=== PATIENT | male | born 1965 ===

== ENCOUNTER 2017-10-22 14:41 | Emergency (ER) | payer MEDICAID ==
[2017-10-22 14:42] VITALS: BMI 31.6
[2017-10-22 15:21] VITALS: BP 136/91; PULSE 86; RESP 16; TEMP 98; O2SAT 95
[2017-10-22] MEDS ORDERED: Morphine 4 mg/ml ISec IVP STA (16:21)
[2017-10-22] MEDS ORDERED: Sodium Chloride 0.9% 1,000 ML IV STA (16:21)
[2017-10-22] MEDS ORDERED: Albuterol-Ipratrop 3 mg / 0.5 (3 ml) UD IH STA (16:22)
--- NOTE | 2017-10-22 16:27 | ED PDOC ---
Arrival/HPI - General Chief Complaint: Bite Time Seen by Provider: 10/22/17 16:20 Historian: Patient - History of Present Illness Narrative History of Present Illness (Text): 10/22/17 16:23 This 52 yo male with a pmh Asthma, presents to this ED c/o nausea, vomiting, diarrhea, LLQ abdominal pain, and wheezing x 2 days. Patient stated he was visiting a friend and [place] x 3 days ago. He also noted he was bit by his friend's pet, which it is a skunk. Patient stated friend's pet is indoor at all time. Pet is UTD with any required shot. Patient denies sob, cp, rectal bleeding, fever, or urinary symptoms. Patient stated his last tetanus shot was 3 years ago. Time/Duration: Other (see hpi) Context: Home Past Medical History - Provider Review Nursing Documentation Reviewed: Yes - Infectious Disease Hx of Infectious Diseases: None - Tetanus Immunization Tetanus Immunization: Unknown - Cardiac Hx Cardiac Disorders: No - Pulmonary Hx Respiratory Disorders: Yes Hx Asthma: Yes - Neurological Hx Neurological Disorder: No - HEENT Hx HEENT Disorder: No - Renal Hx Renal Disorder: No - Endocrine/Metabolic Hx Endocrine Disorders: Yes Hx Diabetes Mellitus Type 2: Yes - Hematological/Oncological Hx Blood Disorders: No - Integumentary Hx Dermatological Disorder: No - Musculoskeletal/Rheumatological Hx Musculoskeletal Disorders: No - Gastrointestinal Hx Gastrointestinal Disorders: No - Genitourinary/Gynecological Hx Genitourinary Disorders: No - Psychiatric Hx Psychophysiologic Disorder: No Hx Emotional Abuse: No Hx Physical Abuse: No Hx Substance Use: Yes - Surgical History Other/Comment: CYST REMOVED FROM NECK, COLONOSCOPY - Anesthesia Hx Anesthesia Reactions: No Hx Malignant Hyperthermia: No - Suicidal Assessment Feels Threatened In Home Enviroment: No Family/Social History - Physician Review Nursing Documentation Reviewed: Yes Family/Social History: Other (noncontributory) Smoking Status: Heavy Smoker > 10 Cigarettes Daily Hx Alcohol Use: No Hx Substance Use: Yes Substance used: marijuana Hx Substance Use Treatment: No Allergies/Home Meds Allergies/Adverse Reactions: Allergies varenicline tartrate [From Chantix] Adverse Reaction (Verified 10/22/17 15:16) HEADACHE Home Medications: Home Meds Medication Instructions Recorded Confirmed Mometasone/Formoterol [Dulera] 1 aure IH BID PRN 04/20/16 04/20/18 Review of Systems - Review of Systems Constitutional: Normal. absent: Fatigue, Weight Change, Fevers Eyes: Normal ENT: Normal Respiratory: Wheezing. absent: SOB, Cough, Sputum Cardiovascular: Normal. absent: Chest Pain, Palpitations Gastrointestinal: Abdominal Pain, Diarrhea, Nausea, Vomiting Genitourinary Male: Normal. absent: Dysuria, Frequency, Hematuria Musculoskeletal: Normal. absent: Back Pain Skin: Other (animal bite right 3rd finger) Neurological: Normal. absent: Headache, Dizziness, Focal Weakness, Gait Changes , Speech Changes, Facial Droop, Disequilibrium, Seizure Endocrine: Normal Hemo/Lymphatic: Normal Psychiatric: Normal Physical Exam Vital Signs Temp Pulse Resp BP Pulse Ox 10/22/17 15:17 98 F 86 16 136/91 H 95 Temperature: Afebrile Blood Pressure: Normal Pulse: Regular Respiratory Rate: Normal Appearance: Positive for: Well-Appearing, Non-Toxic, Comfortable Pain Distress: None Mental Status: Positive for: Alert and Oriented X 3 - Systems Exam Head: Present: Atraumatic, Normocephalic Pupils: Present: PERRL Extroacular Muscles: Present: EOMI Conjunctiva: Present: Normal Mouth: Present: Moist Mucous Membranes Pharnyx: Present: Normal. No: ERYTHEMA, EXUDATE, TONSILS ENLARGED Neck: Present: Normal Range of Motion. No: Meningeal Signs Respiratory/Chest: Present: Clear to Auscultation, Good Air Exchange. No: Respiratory Distress, Accessory Muscle Use Cardiovascular: Present: Regular Rate and Rhythm, Normal S1, S2. No: Murmurs Abdomen: Present: Normal Bowel Sounds. No: Tenderness, Distention, Peritoneal Signs, Rebound, Guarding Back: Present: Normal Inspection. No: CVA Tenderness Upper Extremity: Present: Normal ROM, NORMAL PULSES, Neurovascularly Intact, Capillary Refill < 2s, Other ((+) 3 superficial small puncture wound at dorsal aspect, and proximal 3rd finger. No cellulitis or abscess. No swelling, or streaking erythema). No: Cyanosis, Edema, Tenderness, Swelling, Erythema Lower Extremity: Present: Normal Inspection, Normal ROM. No: Edema Neurological: Present: GCS=15, CN II-XII Intact, Speech Normal, Motor Func Grossly Intact, Normal Sensory Function, Normal Cerebellar Funct, Gait Normal Skin: Present: Warm, Dry, Normal Color. No: Rashes Psychiatric: Present: Alert, Oriented x 3, Normal Insight, Normal Concentration Medical Decision Making ED Course and Treatment: 10/22/17 17:04 Nurse came to me to informed me patient had ELOPE - RAD Interpretation Radiology Orders: 10/22/17 16:21 CHEST PORTABLE [RAD] Stat 10/22/17 16:22 ABD & PELVIS IV CONTRAST ONLY [CT] Stat - Medication Orders Current Medication Orders: Discontinued Medications Albuterol/Ipratropium (Duoneb 3 Mg/0.5 Mg (3 Ml) Ud) 3 ml IH STAT STA Stop: 10/22/17 16:23 Famotidine (Pepcid) 20 mg IVP STAT STA Stop: 10/22/17 16:22 Sodium Chloride (Sodium Chloride 0.9%) 1,000 mls @ 1,000 mls/hr IV .Q1H STA Stop: 10/22/17 17:20 Morphine Sulfate (Morphine) 4 mg IVP STAT STA Stop: 10/22/17 16:22 Ondansetron HCl (Zofran Inj) 4 mg IVP STAT STA Stop: 10/22/17 16:22 Disposition/Present on Arrival - Present on Arrival Any Indicators Present on Arrival: No History of DVT/PE: No History of Uncontrolled Diabetes: No Urinary Catheter: No History of Decub. Ulcer: No History Surgical Site Infection Following: None - Disposition Have Diagnosis and Disposition been Completed?: Yes Diagnosis: Abdominal pain, Wheezing Disposition: LEFT W/O TREATMENT - ER ONLY Disposition Time: 17:05 Condition: UNKNOWN Forms: [employer] (Lithuanian)
== END 2017-10-22 16:56 | disposition left against medical advice (07) ==
LOC: ED 14:41
DX: R06.2 Wheezing (principal); R10.9 Unspecified abdominal pain; F17.210 Nicotine dependence, cigarettes, uncomplicated

== ENCOUNTER 2017-10-25 13:21 | Emergency (ER) | payer MEDICAID ==
[2017-10-25 14:11] VITALS: BMI 30.4
[2017-10-25 14:23] VITALS: TEMP 98
--- NOTE | 2017-10-25 15:16 | ED PDOC ---
Arrival/HPI - General Chief Complaint: Lower Extremity Problem/Injury Time Seen by Provider: 10/25/17 14:11 Historian: Patient - History of Present Illness Narrative History of Present Illness (Text): 10/25/17 15:13 52yo male who present with complaint of left foot pain s/p trauma. States he twisted his left foot yesterday, while stepping out of his car yesterday. States he took Tylenol and aleve yesterday with some relieve. His pain is with weight bearing. Denies any other complaint. Past Medical History - Provider Review Nursing Documentation Reviewed: Yes - Infectious Disease Hx of Infectious Diseases: None - Tetanus Immunization Tetanus Immunization: Unknown - Cardiac Hx Cardiac Disorders: No - Pulmonary Hx Respiratory Disorders: Yes Hx Asthma: Yes - Neurological Hx Neurological Disorder: No - HEENT Hx HEENT Disorder: No - Renal Hx Renal Disorder: No - Endocrine/Metabolic Hx Endocrine Disorders: Yes Hx Diabetes Mellitus Type 2: Yes - Hematological/Oncological Hx Blood Disorders: No - Integumentary Hx Dermatological Disorder: No - Musculoskeletal/Rheumatological Hx Musculoskeletal Disorders: No - Gastrointestinal Hx Gastrointestinal Disorders: No - Genitourinary/Gynecological Hx Genitourinary Disorders: No - Psychiatric Hx Psychophysiologic Disorder: No Hx Emotional Abuse: No Hx Physical Abuse: No Hx Substance Use: Yes - Surgical History Other/Comment: CYST REMOVED FROM NECK, COLONOSCOPY - Anesthesia Hx Anesthesia Reactions: No Hx Malignant Hyperthermia: No - Suicidal Assessment Feels Threatened In Home Enviroment: No Family/Social History - Physician Review Nursing Documentation Reviewed: Yes Family/Social History: Unknown Family HX Smoking Status: Heavy Smoker > 10 Cigarettes Daily Hx Alcohol Use: No Hx Substance Use: Yes Substance used: marijuana Hx Substance Use Treatment: No Allergies/Home Meds Allergies/Adverse Reactions: Allergies varenicline tartrate [From Chantix] Adverse Reaction (Verified 10/22/17 15:16) HEADACHE Home Medications: Home Meds Medication Instructions Recorded Confirmed Mometasone/Formoterol [Dulera] 1 aure IH BID PRN 10/23/15 10/22/17 Review of Systems - Physician Review All systems were reviewed & negative as marked: Yes - Review of Systems Constitutional: Normal Eyes: Normal ENT: Normal Respiratory: Normal Cardiovascular: Normal Gastrointestinal: Normal Genitourinary Male: Normal Musculoskeletal: Arthralgias (Left foot pain) Skin: Normal Neurological: Normal Endocrine: Normal Hemo/Lymphatic: Normal Psychiatric: Normal Physical Exam Vital Signs Reviewed: Yes Vital Signs Temp Pulse Resp BP Pulse Ox 10/25/17 15:30 78 16 120/76 99 10/25/17 14:18 98 F 84 18 116/88 98 Temperature: Afebrile Blood Pressure: Normal Pulse: Regular Respiratory Rate: Normal Appearance: Positive for: Well-Appearing, Non-Toxic, Comfortable Pain Distress: None Mental Status: Positive for: Alert and Oriented X 3 - Systems Exam Head: Present: Atraumatic, Normocephalic Pupils: Present: PERRL Extroacular Muscles: Present: EOMI Conjunctiva: Present: Normal Mouth: Present: Moist Mucous Membranes Neck: Present: Normal Range of Motion Respiratory/Chest: Present: Clear to Auscultation, Good Air Exchange. No: Respiratory Distress, Accessory Muscle Use Cardiovascular: Present: Regular Rate and Rhythm, Normal S1, S2. No: Murmurs Abdomen: No: Tenderness, Distention, Peritoneal Signs Back: Present: Normal Inspection Upper Extremity: Present: Normal Inspection. No: Cyanosis, Edema Lower Extremity: Present: NORMAL PULSES, Normal ROM, Tenderness (Left lateral foot), Swelling (Left lateral foot with overlaying ecchymosis), Neurovascularly Intact. No: Edema Neurological: Present: GCS=15, CN II-XII Intact, Speech Normal Skin: Present: Warm, Dry, Normal Color. No: Rashes Psychiatric: Present: Alert, Oriented x 3, Normal Insight, Normal Concentration Medical Decision Making ED Course and Treatment: 10/25/17 15:51 Left foot xray - No acute fracture Jeferson wrap applied. Cane given for ambulation. Pt advised to RICE foot. Referred to ortho. Ibuprofen 600mg given for pain control. - RAD Interpretation Radiology Orders: 10/25/17 14:11 FOOT LEFT 3 VIEWS ROUTINE [RAD] Stat - Medication Orders Current Medication Orders: Discontinued Medications Ibuprofen (Motrin Tab) 600 mg PO STAT STA Stop: 10/25/17 14:12 Last Admin: 10/25/17 15:00 Dose: 600 mg JIMMY Pain/Vitals Document 10/25/17 15:00 LARRY (Rec: 10/25/17 15:32 LARRY [id number]) Pain Reassessment Is This A Pain ReAssessment? No Sleep Is patient sleeping during reassessment? No Presence of Pain Presence of Pain Yes Pain Scale Used Pain Scale Used Numeric Location Intensity 4 Scale Used Numeric Disposition/Present on Arrival - Present on Arrival Any Indicators Present on Arrival: No History of DVT/PE: No History of Uncontrolled Diabetes: No Urinary Catheter: No History of Decub. Ulcer: No History Surgical Site Infection Following: None - Disposition Have Diagnosis and Disposition been Completed?: Yes Diagnosis: Foot sprain Disposition: HOME/ ROUTINE Disposition Time: 15:45 Patient Plan: Discharge Condition: STABLE Discharge Instructions (ExitCare): Foot Sprain (DC) Additional Instructions: Rest, Ice, compress and elevate foot Follow up with your doctor/Orthopedist Return to ED for any new or worsening symptoms Prescriptions: Ibuprofen [Motrin Tab] 600 mg PO Q6 #15 tab Referrals: Herman Syed MD [Primary Care Provider] - Follow up with primary Forms: [employer] (South Korean)
--- NOTE | 2017-10-25 15:32 | RAD ---
PROCEDURE: Left Foot Radiographs. HISTORY: foot pain s/p trauma COMPARISON: None. FINDINGS: BONES: Normal. No fracture. JOINTS: Normal. SOFT TISSUES: Normal. OTHER FINDINGS: None. IMPRESSION: Normal left foot radiographs.
[2017-10-25 15:59] VITALS: BP 120/76; PULSE 78; RESP 16; O2SAT 99
== END 2017-10-25 16:03 | disposition home or self-care (01) ==
LOC: ED 13:21
DX: S93.602A Unspecified sprain of left foot, initial encounter (principal); X50.1XXA Overexertion from prolonged static or awkward postures, initial encounter; Y92.89 Other specified places as the place of occurrence of the external cause

== ENCOUNTER 2018-06-14 13:22 | Emergency (ER) | payer MEDICAID ==
[2018-06-14 14:59] VITALS: BMI 31.0
--- NOTE | 2018-06-14 15:02 | ED PDOC ---
Arrival/HPI - General Time Seen by Provider: 06/14/18 14:41 Historian: Patient - History of Present Illness Narrative History of Present Illness (Text): 06/14/18 14:54 53 year old male, smoker ppd, whose past medical history includes asthma and diabetes, presents to the emergency department complaining of flu like symptoms for the past 4 days. Patient states is experiencing runny nose, runny eyes, mucous, and yellow phlegm. He notes he received the flu vaccine in the summer. Patient reports secondary neck pain that radiates to the shoulder for the past month, it worsens with exertion, his PMD prescribed him Motrin and muscle relaxers with no improvement. He notes that he smoke marijuana to relieve the pain. Patient has positive, multiple sick contacts. Patient denies chest pain, fevers, chills, headache, dizziness, shortness of breath, dyspnea on exertion, abdominal pain, nausea, vomiting, diarrhea, back pain, or any other complaint. PMD: Dr. Syed 06/14/18 17:41 Time/Duration: < week Symptom Course: Unchanged Activities at Onset: Light Context: Home Past Medical History - Provider Review Nursing Documentation Reviewed: Yes - Infectious Disease Hx of Infectious Diseases: None - Tetanus Immunization Tetanus Immunization: Unknown - Cardiac Hx Cardiac Disorders: No - Pulmonary Hx Respiratory Disorders: Yes Hx Asthma: Yes - Neurological Hx Neurological Disorder: No - HEENT Hx HEENT Disorder: No - Renal Hx Renal Disorder: No - Endocrine/Metabolic Hx Endocrine Disorders: Yes Hx Diabetes Mellitus Type 2: Yes - Hematological/Oncological Hx Blood Disorders: No - Integumentary Hx Dermatological Disorder: No - Musculoskeletal/Rheumatological Hx Musculoskeletal Disorders: No - Gastrointestinal Hx Gastrointestinal Disorders: No - Genitourinary/Gynecological Hx Genitourinary Disorders: No - Psychiatric Hx Psychophysiologic Disorder: No Hx Emotional Abuse: No Hx Physical Abuse: No Hx Substance Use: Yes - Surgical History Other/Comment: CYST REMOVED FROM NECK, COLONOSCOPY - Anesthesia Hx Anesthesia Reactions: No Hx Malignant Hyperthermia: No - Suicidal Assessment Feels Threatened In Home Enviroment: No Family/Social History - Physician Review Nursing Documentation Reviewed: Yes Family/Social History: No Known Family HX Smoking Status: Heavy Smoker > 10 Cigarettes Daily Hx Alcohol Use: No Hx Substance Use: Yes Substance used: marijuana Hx Substance Use Treatment: No Allergies/Home Meds Allergies/Adverse Reactions: Allergies varenicline tartrate [From Chantix] Adverse Reaction (Verified 10/22/17 15:16) HEADACHE Home Medications: Home Meds Medication Instructions Recorded Confirmed Mometasone/Formoterol [Dulera] 1 aure IH BID PRN 10/23/15 10/22/17 Review of Systems - Physician Review All systems were reviewed & negative as marked: Yes - Review of Systems Constitutional: absent: Fevers Eyes: Other (runny eyes) ENT: Rhinorrhea Respiratory: Sputum (yellow phelgm ). absent: SOB Cardiovascular: absent: Chest Pain, Palpitations, Edema, Calf Pain, GA, Orthopnea, Syncope Gastrointestinal: absent: Abdominal Pain, Diarrhea, Nausea Musculoskeletal: Neck Pain (chronic pain, seen by pmd for it, given motrin). absent: Back Pain Neurological: absent: Headache, Dizziness Physical Exam Vital Signs Reviewed: Yes Temperature: Afebrile Blood Pressure: Normal Pulse: Regular Respiratory Rate: Normal Appearance: Positive for: Well-Appearing, Non-Toxic, Comfortable Pain Distress: None Mental Status: Positive for: Alert and Oriented X 3 - Systems Exam Head: Present: Atraumatic, Normocephalic Pupils: Present: PERRL Extroacular Muscles: Present: EOMI Conjunctiva: Present: Normal Mouth: Present: Moist Mucous Membranes (nasal congestion) Neck: Present: Normal Range of Motion Respiratory/Chest: Present: Clear to Auscultation, Good Air Exchange, Wheezes (slight wheeze). No: Respiratory Distress, Accessory Muscle Use Cardiovascular: Present: Regular Rate and Rhythm, Normal S1, S2. No: Murmurs Abdomen: No: Tenderness, Distention, Peritoneal Signs Back: Present: Normal Inspection Upper Extremity: Present: Normal Inspection. No: Cyanosis, Edema Lower Extremity: Present: Normal Inspection. No: Edema Neurological: Present: GCS=15, CN II-XII Intact, Speech Normal Skin: Present: Warm, Dry, Normal Color. No: Rashes Psychiatric: Present: Alert, Oriented x 3, Normal Insight, Normal Concentration Medical Decision Making ED Course and Treatment: 06/14/18 15:01 Impression: 53 year old male who presents to the emergency department complaining of flu like symptoms. rule out flu, pneumonia, asthma exacerbation Plan: -- Chest X-ray -- Albuterol -- Influenza A B -- Reassess and disposition Prior Visits: Notes and results from previous visits were reviewed. Progress Notes: Flu test is negative. 06/14/18 16:27 Chest X-ray reviewed, shows: Impression: No active disease. No significant interval change compared to the prior examination(s). pt feels better w toradol and neb treatment. pt ambulating in no distress. denies complaints. speaking in full sentences, in no distress. 06/14/18 16:42 Instructed patient to follow up with PMD or return to the ER if symptoms worsen. Patient agrees with plan. Patient stable for discharge. All questions answered. 06/14/18 17:42 - Scribe Statement The provider has reviewed the documentation as recorded by the Scribe Keeley Pineda Provider Scribe Attestation: All medical record entries made by the Scribe were at my direction and pe rsonally dictated by me. I have reviewed the chart and agree that the record accurately reflects my personal performance of the history, physical exam, medical decision making, and the department course for this patient. I have also personally directed, reviewed, and agree with the discharge instructions and disposition. Disposition/Present on Arrival - Present on Arrival Any Indicators Present on Arrival: No History of DVT/PE: No History of Uncontrolled Diabetes: No Urinary Catheter: No History Surgical Site Infection Following: None - Disposition Have Diagnosis and Disposition been Completed?: Yes Diagnosis: Viral illness, Asthma attack Disposition: HOME/ ROUTINE Disposition Time: 16:42 Patient Plan: Discharge Patient Problems: Current Active Problems Problem Status Onset Asthma attack Acute Viral illness Acute Condition: IMPROVED Discharge Instructions (ExitCare): Asthma in Adults, Cough, Adult (DC) Additional Instructions: follow up with your primary doctor in 1-2 days return to the ED with any worsening or concerning Prescriptions: RX: Albuterol HFA [Ventolin HFA 90 mcg/actuation (8 g)] 1 - 2 puff IH Q4H PRN #1 bottle PRN Reason: Wheezing Referrals: Herman Syed MD [Primary Care Provider] - Follow up with primary
[2018-06-14] MEDS ORDERED: Albuterol 0.083% Inhal Sol (2.5 mg/3 mL) UD INH ONE (15:06)
[2018-06-14 15:37] VITALS: O2SAT 97
--- NOTE | 2018-06-14 16:26 | RAD ---
Date of service: 06/14/2018 HISTORY: Cough. COMPARISON: 10/23/2015 TECHNIQUE: Chest PA and lateral FINDINGS: LUNGS: No active pulmonary disease. PLEURA: No significant pleural effusion identified. No pneumothorax apparent. CARDIOVASCULAR: No aortic atherosclerotic calcification present. Normal cardiac size. No pulmonary vascular congestion. OSSEOUS STRUCTURES: No significant abnormalities. VISUALIZED UPPER ABDOMEN: Normal. OTHER FINDINGS: None. IMPRESSION: No active disease. No significant interval change compared to the prior examination(s).
[2018-06-14 17:16] VITALS: BP 149/106; PULSE 76; RESP 16; TEMP 97.6
== END 2018-06-14 17:56 | disposition home or self-care (01) ==
LOC: ED 13:22
DX: J45.909 Unspecified asthma, uncomplicated (principal); B34.9 Viral infection, unspecified; F17.210 Nicotine dependence, cigarettes, uncomplicated
CPT/HCPCS: 71046; 87804; 96372; 99283; J1885

== ENCOUNTER 2018-09-22 06:01 | Emergency (ER) | payer MEDICAID ==
[2018-09-22 06:01] VITALS: BMI 31.0
[2018-09-22] MEDS ORDERED: Albuterol-Ipratrop 3 mg / 0.5 (3 ml) UD ONE (06:32)
[2018-09-22] MEDS ORDERED: Albuterol-Ipratrop 3 mg / 0.5 (3 ml) UD IH STA (06:39)
[2018-09-22] MEDS ORDERED: Magnesium Sulfate 1 gm in D5W 1 GM/100 ML BAG IVPB ONE (06:48)
[2018-09-22] MEDS: Albuterol-Ipratrop 3 mg / 0.5 (3 ml) UD IH SCH ×3 (07:05→07:42)
--- NOTE | 2018-09-22 07:36 | ED PDOC ---
Arrival/HPI - General Chief Complaint: Flu-like Symptoms Historian: Patient - History of Present Illness Narrative History of Present Illness (Text): 09/22/18 07:37 53 year old male, with past medical history of asthma and diabetes, presents to emergency department for coughing, shortness of breath, and chest pain since yesterday. Patient reports he was diagnosed with influenza a week ago and has been taking the prescribed steroids. He notes symptoms worsened yesterday and that he developed associated palpitations due to shortness of breath. Patient states he administered three nebulizer treatments between 6-11 pm last night and woke up in the middle of the night to use his inhaler, with minimal alleviation in his symptoms. Patient denies any fevers, chills, headache, dizziness, abdominal pain, nausea, vomiting, diarrhea, back pain, neck pain, or any other complaints. Time/Duration: Other (yesterday) Symptom Onset: Gradual Symptom Course: Unchanged Activities at Onset: Light Context: Home Past Medical History - Provider Review Nursing Documentation Reviewed: Yes - Travel History Have you recently traveled outside [place] w/in the past 3 mons?: No - Infectious Disease Hx of Infectious Diseases: None - Tetanus Immunization Tetanus Immunization: Unknown - Cardiac Hx Cardiac Disorders: No - Pulmonary Hx Respiratory Disorders: Yes Hx Asthma: Yes - Neurological Hx Neurological Disorder: No - HEENT Hx HEENT Disorder: No - Renal Hx Renal Disorder: No - Endocrine/Metabolic Hx Endocrine Disorders: Yes Hx Diabetes Mellitus Type 2: Yes - Hematological/Oncological Hx Blood Disorders: No - Integumentary Hx Dermatological Disorder: No - Musculoskeletal/Rheumatological Hx Musculoskeletal Disorders: No - Gastrointestinal Hx Gastrointestinal Disorders: No - Genitourinary/Gynecological Hx Genitourinary Disorders: No - Psychiatric Hx Psychophysiologic Disorder: No Hx Emotional Abuse: No Hx Physical Abuse: No Hx Substance Use: Yes - Surgical History Other/Comment: CYST REMOVED FROM NECK, COLONOSCOPY - Anesthesia Hx Anesthesia: Yes Hx Anesthesia Reactions: No Hx Malignant Hyperthermia: No - Suicidal Assessment Feels Threatened In Home Enviroment: No Family/Social History - Physician Review Nursing Documentation Reviewed: Yes Family/Social History: Unknown Family HX Smoking Status: Heavy Smoker > 10 Cigarettes Daily Hx Alcohol Use: No Hx Substance Use: Yes Substance used: marijuana Hx Substance Use Treatment: No Allergies/Home Meds Allergies/Adverse Reactions: Allergies varenicline tartrate [From Chantix] Adverse Reaction (Verified 10/22/17 15:16) HEADACHE Home Medications: Home Meds Medication Instructions Recorded Confirmed Mometasone/Formoterol [Dulera] 1 aure IH BID PRN 10/23/15 10/22/17 Review of Systems - Physician Review All systems were reviewed & negative as marked: Yes - Review of Systems Constitutional: absent: Fevers Respiratory: SOB, Cough Cardiovascular: Chest Pain, Palpitations Gastrointestinal: absent: Abdominal Pain, Diarrhea, Nausea, Vomiting Musculoskeletal: absent: Back Pain, Neck Pain Skin: absent: Rash Neurological: absent: Headache, Dizziness Physical Exam Vital Signs Reviewed: Yes Vital Signs Temp Pulse Resp BP Pulse Ox 09/22/18 06:27 97.7 F 88 22 130/70 99 Temperature: Afebrile Blood Pressure: Normal Pulse: Regular Respiratory Rate: Normal Appearance: Positive for: Well-Appearing, Non-Toxic, Comfortable Pain Distress: None Mental Status: Positive for: Alert and Oriented X 3 - Systems Exam Head: Present: Atraumatic, Normocephalic Pupils: Present: PERRL Extroacular Muscles: Present: EOMI Conjunctiva: Present: Normal Mouth: Present: Moist Mucous Membranes Neck: Present: Normal Range of Motion Respiratory/Chest: Present: Wheezes (inspiratory and expiratory wheezes in anterior and posterior lung field ), Decreased Breath Sounds (diminished breath sounds near R base), Other (coarse breath sounds bilaterally, no tripoding noted, able to speak in full sentences). No: Clear to Auscultation, Respiratory Distress, Accessory Muscle Use, Rales, Rhonchi, Tachypneic Cardiovascular: Present: Regular Rate and Rhythm, Normal S1, S2. No: Murmurs, Tachycardic Abdomen: No: Tenderness, Distention, Peritoneal Signs Back: Present: Normal Inspection Upper Extremity: Present: Normal Inspection. No: Cyanosis, Edema Lower Extremity: Present: Normal Inspection. No: Edema Neurological: Present: GCS=15, Speech Normal Skin: Present: Warm, Dry, Normal Color. No: Rashes Psychiatric: Present: Alert, Oriented x 3, Normal Insight, Normal Concentration Medical Decision Making ED Course and Treatment: 09/22/18 07:45 Impression: 53 year old male presents to emergency department for worsened chest pain, shortness of breath, and cough since yesterday. Differential Diagnosis included but are not limited to: --Asthma exacerbation -- URI -- Bronchitis Plan: --Chest X-ray --Duonebs -- Albuterol -- Magnesium sulfate -- Reassess and disposition Prior Visits: Notes and results from previous visits were reviewed. Progress Notes: 09/22/18 08:24 Patient reassessed and feels much better after nebulizer treatment, but remains with faint wheezes. He desires to go home, however, he is amenable to another nebulizer treatment. 09/22/18 08:44 Patient reexamined and feels much better. He states since he recently saw his PCP at the beginning of the week, he does not require any additional refills or prescriptions of his medications at this time. He understands he may return to the Emergency Room if symptoms return or worsen. Opportunity for questions given and answered. He is stable for discharge. - RAD Interpretation Radiology Orders: 09/22/18 06:52 CHEST PORTABLE [RAD] Stat - Medication Orders Current Medication Orders: Magnesium Sulfate/Dextrose (Magnesium Sulfate 1 Gm/100 Ml D5w) 1 gm in 100 mls @ 100 mls/hr IVPB ONCE ONE Stop: 09/22/18 07:47 Last Admin: 09/22/18 07:09 Dose: 100 mls/hr eMAR Start Stop Document 09/22/18 07:09 HENNY (Rec: 09/22/18 07:10 [id number]) Intravenous Solution Start Date 09/22/18 Start Time 07:09 Discontinued Medications Albuterol/Ipratropium (Duoneb 3 Mg/0.5 Mg (3 Ml) Ud) 3 ml IH STAT STA Stop: 09/22/18 06:40 Last Admin: 09/22/18 06:44 Dose: 3 ml Albuterol/Ipratropium (Duoneb 3 Mg/0.5 Mg (3 Ml) Ud) 3 ml IH Q15M HILDA Stop: 09/22/18 07:31 Last Admin: 09/22/18 07:24 Dose: 3 ml Methylprednisolone (Solu-Medrol) 125 mg IVP STAT STA Stop: 09/22/18 06:49 Last Admin: 09/22/18 07:05 Dose: 125 mg IVP Administration Document 09/22/18 07:05 HENNY (Rec: 09/22/18 07:05 [id number]) Charges for Administration # of IVP Administrations 1 - Scribe Statement The provider has reviewed the documentation as recorded by the Scribe Hakeem Yusuf All medical record entries made by the Scribe were at my direction and personally dictated by me. I have reviewed the chart and agree that the record accurately reflects my personal performance of the history, physical exam, medical decision making, and the department course for this patient. I have also personally directed, reviewed, and agree with the discharge instructions and disposition. Disposition/Present on Arrival - Present on Arrival Any Indicators Present on Arrival: No History of DVT/PE: No History of Uncontrolled Diabetes: No Urinary Catheter: No History of Decub. Ulcer: No History Surgical Site Infection Following: None - Disposition Have Diagnosis and Disposition been Completed?: Yes Diagnosis: Asthma exacerbation Disposition: HOME/ ROUTINE Disposition Time: 08:47 Patient Plan: Discharge Patient Problems: Current Active Problems Problem Status Onset Asthma exacerbation Acute Condition: IMPROVED Discharge Instructions (ExitCare): Asthma, Adult (DC), Inhalers Print Language: ITALIAN Additional Instructions: All medical record entries made by the Scribe were at my direction and personally dictated by me. I have reviewed the chart and agree that the record accurately reflects my personal performance of the history, physical exam, medical decision making, and the department course for this patient. I have also personally directed, reviewed, and agree with the discharge instructions and disposition. Please follow up with Dr. Syed in 1 week Try to schedule an appointment with a cloth covered helmet puller at your leisure Referrals: Herman Syed MD [Primary Care Provider] - Follow up with primary Diomedes Rodriguez MD [Staff Provider] - Follow up with primary Forms: [employer] (Lithuanian), WORK NOTE
[2018-09-22] MEDS ORDERED: Albuterol 0.083% Inhal Sol (2.5 mg/3 mL) UD INH STA ×2 (07:43→08:22)
[2018-09-22 09:06] VITALS: BP 133/60; PULSE 103; RESP 16; TEMP 97.9; O2SAT 97
--- NOTE | 2018-09-22 09:47 | RAD ---
Date of service: 09/22/2018 HISTORY: cough w/ asthma COMPARISON: 06/14/2018 FINDINGS: LUNGS: No active pulmonary disease. PLEURA: No significant pleural effusion identified, no pneumothorax apparent. CARDIOVASCULAR: No aortic atherosclerotic calcification present. Normal cardiac size. No pulmonary vascular congestion. OSSEOUS STRUCTURES: No significant abnormalities. VISUALIZED UPPER ABDOMEN: Normal. OTHER FINDINGS: None. IMPRESSION: No active disease.
== END 2018-09-22 09:05 | disposition home or self-care (01) ==
LOC: ED 06:01
DX: J45.901 Unspecified asthma with (acute) exacerbation (principal); E11.9 Type 2 diabetes mellitus without complications; F17.210 Nicotine dependence, cigarettes, uncomplicated
CPT/HCPCS: 71045; 96374; 99283; J2930; J3475